=== PATIENT | female | born 1995 | race Caucasian/White ===

== ENCOUNTER 2020-01-04 13:28 | Outpatient (CLI) | payer OTHER ==
[2020-01-04 14:21] LABS: ABSOLUTE EOSINOPHILS # (AUTO) 0.1 10^3/uL (0.0-0.6); ABSOLUTE LYMPHOCYTES (AUTO) 1.8 10^3/uL (0.5-4.7); ABSOLUTE MONOCYTES (AUTO) 0.4 10^3/uL (0.1-1.4); ABSOLUTE NEUT (AUTO) 5.6 10^3/uL (1.7-8.2); BASOPHILS % (AUTO) 0.4 % (0-2); EOSINOPHILS % (AUTO) 1.6 % (0-6); HEMATOCRIT 31.8 % (36.0-47.0); LYMPHOCYTES % (AUTO) 23.2 % (13-45); MEAN CORPUSCULAR HEMOGLOBIN 29.5 pg (27.0-33.4); MEAN CORPUSCULAR HGB CONC 34.8 g/dL (32.0-36.0); MEAN CORPUSCULAR VOLUME 85 fl (80-97); MONOCYTES % (AUTO) 4.6 % (3-13); PLATELET COUNT 181 10^3/uL (150-450); RED BLOOD COUNT 3.75 10^6/uL (3.72-5.28); RED CELL DISTRIBUTION WIDTH 12.6 % (11.5-14.0); SEGMENTED NEUTROPHILS % (AUTO) 70.2 % (42-78); TOTAL CELLS COUNTED % (AUTO) 100 %; WHITE BLOOD COUNT 7.9 10^3/uL (4.0-10.5)
[2020-01-04 14:34] LABS: AMORPHOUS SEDIMENT,URINE TRACE /HPF; APPEARANCE,URINE SLIGHTLY-CLOUDY; BILIRUBIN,URINE NEGATIVE (NEGATIVE); COLOR,URINE YELLOW; GLUCOSE, URINE NEGATIVE (NEGATIVE); KETONES,URINE NEGATIVE (NEGATIVE); LEUKOCYTE ESTERASE,URINE MODERATE (NEGATIVE); NITRITE,URINE NEGATIVE (NEGATIVE); PROTEIN,URINE NEGATIVE (NEGATIVE); URINE SPECIFIC GRAVITY 1.013; UROBILINOGEN,URINE NEGATIVE mg/dL (<2.0)
--- NOTE | 2020-01-04 14:38 | Non Stress Test Report ---
Non Stress Test Datetime Report Generated by CPN: 01/04/2020 14:38 DEMOGRAPHIC Test Number: 1 EGA NST: 34.6 INDICATION Indication for Study (NST) Other: provider orders VITAL SIGNS Temperature - NST: 97.4 Pulse - NST: 73 RESP - NST: 18 NBPSYS NST: 153 NBPDIA NST: 77 MONITORING Monitor Explained: Monitor Explained; Test Explained; Patient Verbalized Understanding Time on Monitor: 01/04/2020 13:54 Time off Monitor: 01/04/2020 14:20 NST Duration: 26 NST INTERVENTIONS NST Interventions: PO Hydration; Reposition Patient Physician Notified NST: Gaudencio Webber, CNM BABY A: [id number] BABY A Movement : Present Contraction Frequency : none FHR Baseline : 130 Accelerations : 15X15 Decelerations : None Variability : Moderate 6-25bpm NST Review: Meets Criteria for Reactive NST NST Review and Verified By : Elvi Goyal RN NST Results: Reactive NST REPORT Report Trigger: Send Report
[2020-01-04 14:40] LABS: ALBUMIN 3.5 g/dL (3.5-5.0); ALKALINE PHOSPHATASE 136 U/L (38-126); ASPARTATE AMINO TRANSFERASE 20 U/L (14-36); BILIRUBIN,TOTAL 0.3 mg/dL (0.2-1.3); BLOOD UREA NITROGEN 6 mg/dL (7-20); CALCIUM 8.9 mg/dL (8.4-10.2); CARBON DIOXIDE 22 mmol/L (22-30); CHLORIDE 108 mmol/L (98-107); GLUCOSE 74 mg/dL (75-110); POTASSIUM 4.2 mmol/L (3.6-5.0); TOTAL PROTEIN 6.6 g/dL (6.3-8.2); URIC ACID 3.6 mg/dL (2.5-6.2)
[2020-01-04 14:41] LABS: ANION GAP 3 (5-19)
[2020-01-04 14:55] LABS: URINE AMPHETAMINES SCREEN NEGATIVE; URINE BARBITURATES SCREEN NEGATIVE; URINE BENZODIAZEPINES SCREEN NEGATIVE; URINE COCAINE SCREEN NEGATIVE; URINE MARIJUANA (THC) SCREEN NEGATIVE; URINE METHADONE SCREEN NEGATIVE; URINE PHENCYCLIDINE SCREEN NEGATIVE
[2020-01-04 15:00] LABS: UR PRO/CREAT RATIO RESULT 0.1 mg/mg (0.0-0.2); URINE CREATININE 94.7 mg/dL (16-327)
== END 2020-01-04 15:18 | disposition home or self-care (01) ==
LOC: LC 13:28
PROVIDERS: ATTEND Obstetrics & Gynecology Gynecology
DX: O47.03 False labor before 37 completed weeks of gestation, third trimester (principal); Z3A.34 34 weeks gestation of pregnancy; Z91.040 Latex allergy status
CPT/HCPCS: 36415; 59025; 80053; 80307; 81001; 82570; 83615; 84112; 84156; 84550; 85025

== ENCOUNTER 2020-01-12 00:29 | Outpatient (CLI) | payer OTHER ==
[2020-01-12 01:14] LABS: APPEARANCE,URINE SLIGHTLY-CLOUDY; BILIRUBIN,URINE NEGATIVE (NEGATIVE); COLOR,URINE YELLOW; GLUCOSE, URINE 50 mg/dL (NEGATIVE); KETONES,URINE NEGATIVE (NEGATIVE); LEUKOCYTE ESTERASE,URINE TRACE (NEGATIVE); NITRITE,URINE NEGATIVE (NEGATIVE); PROTEIN,URINE NEGATIVE (NEGATIVE); URINE SPECIFIC GRAVITY 1.014; UROBILINOGEN,URINE NEGATIVE mg/dL (<2.0)
[2020-01-12] MEDS ORDERED: HYDROXYZINE PAMOATE 50 MG CAPSULE PO ONE (01:22)
[2020-01-12] MEDS ORDERED: RINGERS SOLUTION,LACTATED 1,000 ML IV ONE (01:23)
[2020-01-12] MEDS ORDERED: HYDROXYZINE PAMOATE 50 MG CAPSULE ONE (01:27)
[2020-01-12 02:36] LABS: URINE AMPHETAMINES SCREEN NEGATIVE; URINE BARBITURATES SCREEN NEGATIVE; URINE BENZODIAZEPINES SCREEN NEGATIVE; URINE COCAINE SCREEN NEGATIVE; URINE MARIJUANA (THC) SCREEN NEGATIVE; URINE METHADONE SCREEN NEGATIVE; URINE PHENCYCLIDINE SCREEN NEGATIVE
[2020-01-12] MEDS ORDERED: ACETAMINOPHEN 325 MG TABLET PO ONE (03:12)
[2020-01-12] MEDS ORDERED: ACETAMINOPHEN 325 MG TABLET ONE (03:17)
--- NOTE | 2020-01-12 03:37 | Non Stress Test Report ---
Non Stress Test Datetime Report Generated by CPN: 01/12/2020 03:37 DEMOGRAPHIC EGA NST: 36.0 INDICATION Indication for Study (NST) Other: LC- back pain MONITORING Monitor Explained: Monitor Explained; Test Explained; Patient Verbalized Understanding Time on Monitor: 01/12/2020 00:43 Time off Monitor: 01/12/2020 03:30 NST Duration: 167 NST INTERVENTIONS NST Interventions: IV Fluids; Reposition Patient Physician Notified NST: Dr. John BABY A: [id number] BABY A Movement : Present Contraction Frequency : none FHR Baseline : 135 Accelerations : 15X15 Decelerations : None Variability : Moderate 6-25bpm NST Review: Meets Criteria for Reactive NST NST Review and Verified By : D Bellavance RN NST Results: Reactive NST REPORT Report Trigger: Send Report
== END 2020-01-12 03:40 | disposition home or self-care (01) ==
LOC: LC 00:29
PROVIDERS: ATTEND Obstetrics & Gynecology
DX: O26.893 Other specified pregnancy related conditions, third trimester (principal); R10.9 Unspecified abdominal pain; M54.9 Dorsalgia, unspecified; Z3A.35 35 weeks gestation of pregnancy
CPT/HCPCS: 59025; 80307; 81001

== ENCOUNTER 2020-01-26 22:58 | Outpatient (CLI) | payer OTHER ==
[2020-01-26 23:51] LABS: APPEARANCE,URINE SLIGHTLY-CLOUDY; BILIRUBIN,URINE NEGATIVE (NEGATIVE); COLOR,URINE STRAW; GLUCOSE, URINE NEGATIVE (NEGATIVE); KETONES,URINE NEGATIVE (NEGATIVE); LEUKOCYTE ESTERASE,URINE TRACE (NEGATIVE); NITRITE,URINE NEGATIVE (NEGATIVE); PROTEIN,URINE NEGATIVE (NEGATIVE); URINE SPECIFIC GRAVITY 1.004; UROBILINOGEN,URINE NEGATIVE mg/dL (<2.0)
[2020-01-27 00:06] LABS: URINE AMPHETAMINES SCREEN NEGATIVE; URINE BARBITURATES SCREEN NEGATIVE; URINE BENZODIAZEPINES SCREEN NEGATIVE; URINE COCAINE SCREEN NEGATIVE; URINE MARIJUANA (THC) SCREEN NEGATIVE; URINE METHADONE SCREEN NEGATIVE; URINE PHENCYCLIDINE SCREEN NEGATIVE
[2020-01-27] MEDS ORDERED: HYDROXYZINE PAMOATE 50 MG CAPSULE PO ONE (01:00)
[2020-01-27] MEDS ORDERED: HYDROXYZINE PAMOATE 50 MG CAPSULE ONE (01:01)
--- NOTE | 2020-01-27 01:47 | Non Stress Test Report ---
Non Stress Test Datetime Report Generated by CPN: 01/27/2020 01:47 DEMOGRAPHIC EGA NST: 38.0 INDICATION Indication for Study (NST) Other: Gestational age greater than 32 weeks VITAL SIGNS Temperature - NST: 98.7 Pulse - NST: 70 RESP - NST: 18 NBPSYS NST: 125 NBPDIA NST: 64 MONITORING Monitor Explained: Monitor Explained; Test Explained; Patient Verbalized Understanding Time on Monitor: 01/26/2020 23:15 Time off Monitor: 01/27/2020 01:03 NST INTERVENTIONS NST Interventions: PO Hydration; Reposition Patient Physician Notified NST: Dr. Moctezuma BABY A: [id number] BABY A Movement : Present Contraction Frequency : 3-6 FHR Baseline : 125 Accelerations : 15X15 Variability : Moderate 6-25bpm NST Review: Meets Criteria for Reactive NST NST Review and Verified By : Nigel Esquivel RN NST Results: Reactive NST REPORT Report Trigger: Send Report
== END 2020-01-27 01:10 | disposition home or self-care (01) ==
LOC: LC 22:58
PROVIDERS: ATTEND Obstetrics & Gynecology
DX: O47.1 False labor at or after 37 completed weeks of gestation (principal); Z3A.38 38 weeks gestation of pregnancy; Z91.040 Latex allergy status
CPT/HCPCS: 59025; 80307; 81005; 84112

== ENCOUNTER 2020-02-15 05:03 | Inpatient (IN) | payer OTHER ==
[2020-02-15 05:36] LABS: APPEARANCE,URINE SLIGHTLY-CLOUDY; BILIRUBIN,URINE NEGATIVE (NEGATIVE); COLOR,URINE YELLOW; GLUCOSE, URINE NEGATIVE (NEGATIVE); KETONES,URINE NEGATIVE (NEGATIVE); LEUKOCYTE ESTERASE,URINE SMALL (NEGATIVE); NITRITE,URINE NEGATIVE (NEGATIVE); PROTEIN,URINE NEGATIVE (NEGATIVE); URINE SPECIFIC GRAVITY 1.012; UROBILINOGEN,URINE NEGATIVE mg/dL (<2.0)
[2020-02-15 05:56] LABS: URINE AMPHETAMINES SCREEN NEGATIVE; URINE BARBITURATES SCREEN NEGATIVE; URINE BENZODIAZEPINES SCREEN NEGATIVE; URINE COCAINE SCREEN NEGATIVE; URINE MARIJUANA (THC) SCREEN NEGATIVE; URINE METHADONE SCREEN NEGATIVE; URINE PHENCYCLIDINE SCREEN NEGATIVE
--- NOTE | 2020-02-15 06:12 | Admission Physical ---
Datetime Report Generated by CPN: 02/15/2020 06:12 CURRENT ADMISSION Chief Complaint: Uterine Contractions; Suspected Ruptured Membranes Chief Complaint Other: Woke with contractions around 2 am and then her water broke about 2.5 hours later. No bleeding. Clear fluid. Good FM. Feeling irregular contractions Indication for Induction: PROM Admit Impression : Term, Intrauterine Admit Plan: Admit to Unit; Initiate Labor Induction Protocol ALLERGIES Medication Allergies: No Medication Allergies: latex (02/15/2020) Latex: Latex Allergies Food Allergies: none Environmental Allergies: none OBSTETRICAL HISTORY EDC: 02/09/2020 00:00 : 1 Para: 0 Term: 0 : 0 SAB: 0 IAB: 0 Livin Gestational Diabetes: No Rh Sensitization: No Incompetent Cervix: No DAVI: No Infertility: No ART Treatment: No Uterine Anomaly: No IUGR: No Hx Previous C/S: No Macrosomia: No Hx Loss/Stillborn: No PIH: No Hx : No Placenta Previa/Abruption: No Depression/PP Depression: No PTL/PROM: No Post Hemorrhage: No Current Procedures: Ultrasound Obstetrical History Comments: G1- current SEE RECORDS Alcohol: No Marijuana : No Cocaine: No Other Illicit Drugs: No Cigarettes: Never Smoker. [id number] MEDICAL HISTORY Diabetes: No Blood Transfusion: No Pulmonary Disease (Asthma, TB): No Breast Disease: No Hypertension: No Discovery Guide Surgery: No Heart Disease: No Hosp/Surgery: Yes Autoimmune Disorder: No Anesthetic Complications: No Kidney Disease: No Abnormal Pap Smear: No Neuro/Epilepsy: No Psychiatric Disorders: No Other Medical Diseases: No Hepatitis/Liver Disease: No Significant Family History: No Varicosities/Phlebitis: No Trauma/Violence : No Thyroid Dysfunction: No Medical History Comments: tonsillectomy in 2013 INFECTIOUS HISTORY Gonorrhea: No Genital Herpes: No Chlamydia: No Tuberculosis: No Syphilis: No Hepatitis: No HIV/AIDS Exposure: No Rash or Viral Illness: No HPV: No PHYSICAL EXAM General: Normal HEENT: Normal Neurologic: Normal Thyroid: Normal Heart: Normal Lungs: Normal Breast: Normal Back: Normal Abdomen: Normal Genitourinary Exam: Normal Extremities: Normal DTRs: Normal Pelvic Type: Adequate Vital Signs: Reviewed VAGINAL EXAM Dilatation: 2 Effacement: 50 Station: -3 Contraction Comments: irregular MEMBRANES Membranes: Ruptured Amniotic Fluid Color: Clear FETUS A EGA: 40.6 Monitoring: External US FHR- Baseline: 125 Variability: Moderate 6-25bpm Accelerations: 15X15 Decelerations: None FHR Category: Category I Presentation: Vertex Admit Comment: G1 at 40.6 wks EGA in active labor. Ctx this am and then SROM clear at 0430 -admit to LDR -CEFM and toco -NPO and IVFs -GBS negative -Begin Pitocin low dose protocol -Anticipate PLANS FOR LABOR AND DELIVERY Labor and Delivery: None Pain Management: Medications; Epidural Feeding Preference: Formula Benefit of Breast Feed Discussed: Yes INFORMED CONSENT Informed Consent Obtained: Vaginal Delivery; Section Delivery; Induction of Labor; Vacuum/Forceps Assist; Risks, Benefits and Alternatives Discussed Signature: with User ID: [email or web address] : with User ID: [email or web address]
[2020-02-15] MEDS ORDERED: RINGERS SOLUTION,LACTATED 1,000 ML IV PRN (07:22)
[2020-02-15] MEDS ORDERED: RINGERS SOLUTION,LACTATED 1,000 ML IV ONE (07:22)
[2020-02-15] MEDS ORDERED: OXYTOCIN 10 UNIT/ML VIAL ONE (07:33)
[2020-02-15] MEDS ORDERED: MISOPROSTOL 0.2 MG TABLET ONE (07:34)
[2020-02-15] MEDS ORDERED: LIDOCAINE 1% INJ-PF (10 MG/ML) 30 ML SDV ONE (07:34)
[2020-02-15] MEDS ORDERED: OXYTOCIN/0.9 % SODIUM CHLORIDE 30 UNIT/500 ML RTUINJ ONE (07:34)
[2020-02-15] MEDS ORDERED: OXYTOCIN/0.9 % SODIUM CHLORIDE 30 UNIT/500 ML RTUINJ IV PRN ×2 (07:40→16:33)
[2020-02-15] MEDS ORDERED: PROMETHAZINE HCL INJ 25 MG/1 ML VIAL IV ONE (07:41)
[2020-02-15] MEDS ORDERED: NALBUPHINE HCL INJ 10 MG/1 ML AMPULE INJ ONE (07:41)
[2020-02-15] MEDS ORDERED: PROMETHAZINE HCL INJ 25 MG/1 ML VIAL ONE (07:51)
[2020-02-15] MEDS ORDERED: NALBUPHINE HCL INJ 10 MG/1 ML AMPULE ONE (07:51)
[2020-02-15 07:52] LABS: ABSOLUTE EOSINOPHILS # (AUTO) 0.1 10^3/uL (0.0-0.6); ABSOLUTE LYMPHOCYTES (AUTO) 3.8 10^3/uL (0.5-4.7); ABSOLUTE MONOCYTES (AUTO) 0.6 10^3/uL (0.1-1.4); ABSOLUTE NEUT (AUTO) 8.4 10^3/uL (1.7-8.2); BASOPHILS % (AUTO) 0.3 % (0-2); HEMATOCRIT 36.5 % (36.0-47.0); HEMOGLOBIN 12.4 g/dL (12.0-15.5); LYMPHOCYTES % (AUTO) 29.5 % (13-45); MEAN CORPUSCULAR HEMOGLOBIN 28.1 pg (27.0-33.4); MEAN CORPUSCULAR HGB CONC 33.9 g/dL (32.0-36.0); MEAN CORPUSCULAR VOLUME 83 fl (80-97); MONOCYTES % (AUTO) 4.4 % (3-13); PLATELET COUNT 228 10^3/uL (150-450); RED CELL DISTRIBUTION WIDTH 13.2 % (11.5-14.0); SEGMENTED NEUTROPHILS % (AUTO) 64.8 % (42-78); TOTAL CELLS COUNTED % (AUTO) 100 %; WHITE BLOOD COUNT 12.9 10^3/uL (4.0-10.5)
[2020-02-15] MEDS ORDERED: EPHEDRINE SULFATE INJ 50 MG/1 ML AMPULE ONE (10:20)
[2020-02-15] MEDS ORDERED: FENTANYL/BUPIVACAINE/NS/PF 300 MCG/150 ML RTUINJ EPI ONE (10:20)
[2020-02-15] MEDS ORDERED: ROPIVACAINE HCL 0.2% INJ/PF (2 MG/ML) 20 ML SDV ONE (10:21)
[2020-02-15] MEDS ORDERED: FENTANYL CITRATE INJ/PF 100 MCG/2 ML AMPUL ONE (10:53)
[2020-02-15] MEDS ORDERED: ACETAMINOPHEN WITH CODEINE #3 TABLET PO PRN ×2 (16:33)
[2020-02-15] MEDS ORDERED: PROMETHAZINE HCL 25 MG SUPP.RECT PR PRN (16:33)
[2020-02-15] MEDS ORDERED: GLYCERIN/WITCH HAZEL LEAF 1 EACH MED..WIPE TP PRN (16:33)
[2020-02-15] MEDS ORDERED: PROMETHAZINE HCL INJ 25 MG/1 ML VIAL IV PRN (16:33)
[2020-02-15] MEDS ORDERED: ZOLPIDEM TARTRATE 5 MG TABLET PO PRN (16:33)
[2020-02-15] MEDS ORDERED: BENZOCAINE/MENTHOL AEROSOL SPRAY 56 ML TOP PRN (16:33)
[2020-02-15] MEDS ORDERED: DIPHENHYDRAMINE HCL 25 MG CAPSULE PO PRN (16:33)
[2020-02-15] MEDS ORDERED: DIPH/PERTUSS(ACELL)/TETANUS VAC/PF 0.5 ML SYR (>=10YO) IM PRN (16:33)
[2020-02-15] MEDS ORDERED: MEASLES,MUMPS&RUBELLA VACC/PF 0.5 ML VIAL SUBCUT PRN (16:33)
[2020-02-15] MEDS ORDERED: DIBUCAINE 1% OINTMENT 28 GM TP PRN (16:33)
[2020-02-15] MEDS ORDERED: PROMETHAZINE HCL 25 MG TABLET PO PRN (16:33)
[2020-02-15] MEDS ORDERED: PSEUDOEPHEDRINE HCL 30 MG TABLET PO PRN (16:33)
[2020-02-15] MEDS ORDERED: NA PHOS,M-B/NA PHOS,DI-BA (ADULT) 133 ML ENEMA PR PRN (16:33)
[2020-02-15] MEDS ORDERED: ACETAMINOPHEN 650 MG SUPP.RECT PR PRN (16:33)
[2020-02-15] MEDS ORDERED: MAGNESIUM HYDROXIDE SUSP 30 ML UDCUP PO PRN (16:33)
[2020-02-15] MEDS ORDERED: MISOPROSTOL 0.2 MG TABLET PR ONE (17:22)
[2020-02-15] MEDS ORDERED: METHYLERGONOVINE MALEATE INJ/PF 0.2 MG/1 ML AMPULE ONE (17:47)
[2020-02-15 18:11] LABS: ABSOLUTE LYMPHOCYTES (AUTO) 1.4 10^3/uL (0.5-4.7); ABSOLUTE MONOCYTES (AUTO) 0.5 10^3/uL (0.1-1.4); ABSOLUTE NEUT (AUTO) 14.9 10^3/uL (1.7-8.2); BASOPHILS % (AUTO) 0.2 % (0-2); EOSINOPHILS % (AUTO) 0.2 % (0-6); HEMATOCRIT 32.3 % (36.0-47.0); LYMPHOCYTES % (AUTO) 8.5 % (13-45); MEAN CORPUSCULAR HEMOGLOBIN 28.3 pg (27.0-33.4); MEAN CORPUSCULAR HGB CONC 34.1 g/dL (32.0-36.0); MEAN CORPUSCULAR VOLUME 83 fl (80-97); MONOCYTES % (AUTO) 3.1 % (3-13); PLATELET COUNT 221 10^3/uL (150-450); RED CELL DISTRIBUTION WIDTH 13.5 % (11.5-14.0); TOTAL CELLS COUNTED % (AUTO) 100 %
[2020-02-15] MEDS ORDERED: AMPICILLIN SOD/SULBACTAM 1.5 GM VIAL IV ONE (18:26)
[2020-02-15] MEDS ORDERED: METHYLERGONOVINE MALEATE 0.2 MG TABLET ONE (18:30)
[2020-02-15] MEDS ORDERED: AMPICILLIN SOD/SULBACTAM 3 GM VIAL ONE (18:30)
[2020-02-15] MEDS ORDERED: AMPICILLIN SOD/SULBACTAM 3 GM VIAL IV SCH (18:30)
[2020-02-15] MEDS ORDERED: ACETAMINOPHEN 650 MG SUPP.RECT PR ONE (18:55)
--- NOTE | 2020-02-15 18:58 | Warning Signs in Babies ---
VOD Warning Signs Datetime Report Generated by [facility]: 02/15/2020 18:58 VOD#608 -Warning Signs in Babies: Needs to be viewed. (01/04/2020 13:36:Viri Reyna RN)
--- NOTE | 2020-02-15 19:12 | Birth Certificate Data ---
Cert Data Datetime Report Generated by CPN: 02/15/2020 19:11 CERTIFICATE DATA 47a. Care: Yes (01/04/2020 13:36:Ijeoma Montgomery RN) 48a. Number of Prev Live Births: 0 (01/04/2020 13:36:Rowan Amin RN) 48b. Now Livin (01/04/2020 13:36:Suzie Hernandez RN) 48c. Live Births Now : 0 (01/04/2020 13:36: system process) 48e. Losses: 0 (01/04/2020 13:36:Rowan Amin RN) RISK FACTORS IN THIS 49a. Diabetes: No (01/04/2020 13:36:Olinda Wang RN) 49b. Hypertension: No (01/04/2020 13:36:Olinda Wang RN) 49c. Previous Births: 0 (01/04/2020 13:36:Suzie Hernandez RN) 49d. Stillborns: No (01/04/2020 13:36:Olinda Wang RN) 49d. IUGR: No (01/04/2020 13:36:Olinda Wang RN) 49e. Infertility Treatment: No (01/04/2020 13:36:Olinda Wang RN) 49f. Previous Cesareans: 0 (01/04/2020 13:36:Rowan Amin RN) Mother's Height 50b. Height Inches: 69 (02/15/2020 06:58:QS system process) Mother's Weight 51a. Pre- Weight (lbs): 197 (01/04/2020 13:36:Idris Still RN) 51b. Weight at Delivery (lbs): 233 (02/15/2020 06:58:QS system process) 52. Dt Last Normal Menses Began: 05/05/2019 00:00 (01/04/2020 13:36:Olinda Wang RN) Infections Present/Treated 53a. Gonorrhea: No (01/04/2020 13:36:Olinda Wang RN) Results this Hospital Visit : Negative (01/04/2020 13:36:Idris Still RN) 53b. Syphilis: No (01/04/2020 13:36:Olinda Wang RN) 53c. Chlamydia: No (01/04/2020 13:36:Olinda Wang RN) Results this Hospital Visit: Negative (01/04/2020 13:36:Idris Still RN) 53d. Hepatitis B: No (01/04/2020 13:36:Olinda Wang RN) Results this Hospital Visit: Negative (01/04/2020 13:36:Idris Still RN) 53e. Hepatitis C: Negative (01/04/2020 13:36:Idris Still RN) 53h. Mother Tested for HBsAG: Yes (01/04/2020 13:36:Idris Still RN) 53i. Date Tested: 07/27/2019 00:00 (01/04/2020 13:36:Idris Still RN) 53j. Test Result: Negative (01/04/2020 13:36:Idris Still, RN) Obstetric Procedures 54a, b, c. Obstetric Procedures: Ultrasound (01/04/2020 13:36:Olinda Wang, RN) Cigarette Smoking Cigarette Smoking: Never Smoker. [id number] (01/04/2020 13:36:Olindajazmine Wang, RN) Onset of Labor 56a. PROM >12 Hrs: 11.45 (02/15/2020 06:29:QS system process) 56b. Precipitous Labor <3 Hrs: 4 (01/04/2020 13:36:QS system process) 56c. Prolonged Labor > 20 Hrs: 4 (01/04/2020 13:36:QS system process) 57a. Induction of Labor: Induction (01/04/2020 13:36:ODALIS Bansal) 57a. Induction of Labor: Cytotec @ 1000 MN (02/15/2020 17:24:Frances Whaley RN) 57c. Non-Vertex Presentation A: Vertex (01/04/2020 13:36:ODALIS Bansal) 57d. Steroids - Lung Mat: None (01/04/2020 13:36:ODALIS Bansal) 57d. Steroids - Lung Mat: Not Applicable (01/04/2020 13:36:ODALIS Bansal) 57g. Moderate/Heavy Meconium: Clear (02/15/2020 06:29:Rowan Amin RN) 57h. Intolerance of Labor: N/A (01/04/2020 13:36:ODALIS Bansal) : Repeat Elective (01/04/2020 13:36:ODALIS Bansal) 57i. Epidural/Spinal Anesthesia: Epidural (01/04/2020 13:36:ODALIS Bansal) Method of Delivery 58a. Forceps - Unsuccessful A: N/A (01/04/2020 13:36:[facility]) 58b. Vacuum - Unsuccessful A: N/A (01/04/2020 13:36:[facility]) 58c. Presentation at 58c. Presentation at - A : Vertex (01/04/2020 13:36:[facility]) 58c. Presentation at - A : N/A (01/04/2020 13:36:[facility]) 58c. Presentation at - A : Cephalic (02/15/2020 11:33:Frances Whaley ) Final Route and Method of Del 58d. Baby A Route/Delivery: Vaginal (01/04/2020 13:36:[facility]) 58e. Trial of Labor Attempted: No (01/04/2020 13:36:Dahlia Camp, RNC) 58e. Trial of Labor Attempted A: N/A (01/04/2020 13:36:Dahlia Camp, RNC) 58e. Trial of Labor Attempted B: N/A (01/04/2020 13:36:Dahlia Camp, RNC) Maternal Morbidity 59b. 3rd or 4th Degree Lacs: Perineal (01/04/2020 13:36:Dahlia Camp, RNC) 59b. 3rd or 4th Degree Lacs: Second Degree (01/04/2020 13:36:Dahlia Camp, RNC) Birthweight Baby A: 3731 (01/04/2020 13:36:Viri Reyna RN) 60a. Pounds : 8 (01/04/2020 13:36:QS system process) 60b. Ounces: 4 (01/04/2020 13:36:QS system process) 61. GA at Delivery Baby A: 40.6 (01/04/2020 13:36:Dahlia Camp, RNC) : Full Term- 39- 40.6 Weeks (01/04/2020 13:36:QS system process) 62a. 5 Minute Baby A: 9 (01/04/2020 13:36:QS system process)
--- NOTE | 2020-02-15 19:12 | Delivery Summary ---
Del Sum A-C Datetime Report Generated by CPN: 02/15/2020 19:11 DELIVERY PERSONNEL DELIVERY PERSONNEL: [id number] Delivery Doctor:: Nadine Michaels CNM Nurse Esl Tutor Certified:: Nadine Michaels CNM Labor and Delivery Nurse:: Frances Whaley RNorthotist/prosthetist Nurse:: ODALIS Bansal Nursery Nurse:: RENAE Root/BUILDER OPERATOR: Marija Baum, STAPLE PROCESSING MACHINE OPERATOR MATERNAL INFORMATION Delivery Anesthesia: Epidural Medications After Delivery: Pitocin 30 Units in 500ml NS/D5W; Methergine 0.2mg IM; Cytotec 1000mcg Per Rectum/Vagina Delivery QBL: 100 Maternal Complications: None Provider Comments: SVDVF over 2nd deg roni lac with nuchal cord. Somersaulted baby through, OA to ANGELES. Shoulders delivered easily. Infant vigorous, to mothers abd. Cord clamped x2 cut per FOB after 2 min. 3VC noted. Placenta spont and intact with trailing membranes. FF@U-2. Bleeding stabilized. Perineal repair as above. LABOR SUMMARY EDC: 02/09/2020 00:00 No. Babies in Womb: 1 Attempted: No Labor Anesthesia: Epidural LABOR INFORMATION Reason for Induction: Not Applicable Onset of Labor: 02/15/2020 11:30 Complete Dilatation: 02/15/2020 15:35 Cervical Ripening Agents: Cytotec @ 1000 TN Oxytocin: Induction Group B Beta Strep: Negative Antibiotics # of Doses: 0 Steroids Given: None Reason Steroids Not Administered: Not Applicable MEMBRANES Membranes Rupture Method: Spontaneous Rupture of Membranes: 02/15/2020 04:30 Length of Rupture (hr): 11.45 Amniotic Fluid Color: Clear Amniotic Fluid Amount: Small Amniotic Fluid Odor: Normal STAGES OF LABOR Stage 1 hr: 4 Stage 1 min: 5 Stage 2 hr: 0 Stage 2 min: 22 Stage 3 hr: 0 Stage 3 min: 6 Total Time in Labor hr: 4 Total Time in Labor min: 33 VAGINAL DELIVERY Episiotomy: None Laceration #1: Perineal Laceration Extension #1: Second Degree Laceration Repair: Yes Laceration Repair Note: 2.0 chromic suture used for repair in usual fashion Sponge Count Correct: N/A Sharps Count Correct: N/A CSECTION DELIVERY Primary Indication: N/A Secondary Indication: Repeat Elective CSection Incidence: N/A Labor: N/A Elective: N/A CSection Incision: N/A BABY A INFORMATION Delivery Date/Time: 02/15/2020 15:57 Method of Delivery: Vaginal Nurse Controlled Delivery: No Born in Route : No : N/A Forceps: N/A Vacuum Extraction: N/A Shoulder Dystocia : No PRESENTATION/POSITION BABY A Presentation: Cephalic Cephalic Presentation: Vertex Vertex Position: Right Occipital Anterior Breech Presentation: N/A PLACENTA INFORMATION BABY A Placenta Delivery Time : 02/15/2020 16:03 Placenta Method of Delivery: Spontaneous Placenta Status: Delivered SCORES BABY A Heart Rate 1 min: >100 bpm Resp Effort 1 min: Good Cry Reflex Irritability 1 min: Cough or Sneeze or Pulls Away Muscle Tone 1 min: Active Motion Color 1 min: Blue/Pale Resuscitation Effort 1 min: Tactile Stimulation SCORE 1 MIN: 8 Heart Rate 5 min: >100 bpm Resp Effort 5 min: Good Cry Reflex Irritability 5 min: Cough or Sneeze or Pulls Away Muscle Tone 5 min: Active Motion Color 5 min: Body [place], Extremities Blue Resuscitation Effort 5 min: N/A SCORE 5 MIN: 9 Resuscitation Effort 10 min: N/A INFORMATION BABY A Gestational Age at Delivery: 40.6 Gestational Status: Full Term- 39- 40.6 Weeks Outcome : Liveborn Infant Condition : Stable Infant Sex: Female IDENTIFICATION BABY A Infant Verification Date/Time: 02/15/2020 16:19 ID Band Number: [id number] Mother's Name Verified: Yes RN Verifying : Delilah Whaley, RENAE Additional Verifying Personnel: Delilah Hidalgo RN WEIGHT/LENGTH BABY A Birthweight (gm): 3731 Weight (lb): 8 Infant Weight (oz): 4 Infant Length (in): 20.50 Infant Length (cm): 52.07 CORD INFORMATION BABY A No. Cord Vessels: 3 Nuchal Cord : Around Neck x1, Loose Cord Blood Taken: Yes-For Storage (Mom's Blood type +) Infant Suction: None ASSESSMENT BABY A Infant Complications: None Physical Findings at Delivery: Within Normal Limits Respirations: Appears Normal Skin to Skin: Yes Skin to Skin Time (min): 60 Box Tender/ALS Called : No Infant Care By: C Danielle RN Transferred To: Remains with Mother BABY B INFORMATION : N/A SIGNATURES Assignment: Tra Arteaga MD Signature: with User ID: [email or web address] : with User ID: [email or web address] : I was personally available for consultation and serving as supervising physician for the MLP.
[2020-02-15] MEDS: METHYLERGONOVINE MALEATE 0.2 MG TABLET PO SCH (22:02)
[2020-02-15] MEDS ORDERED: FAMOTIDINE 20 MG TABLET ONE (22:14)
[2020-02-15] MEDS: DOCUSATE SODIUM 100 MG CAPSULE PO SCH (22:24)
[2020-02-15] MEDS: FAMOTIDINE 20 MG TABLET PO SCH (22:25)
[2020-02-15] MEDS: IBUPROFEN 800 MG TABLET PO SCH (22:25)
[2020-02-15] MEDS: FERROUS SULFATE 325 MG TABLET PO SCH (22:25)
[2020-02-16] MEDS ORDERED: METHYLERGONOVINE MALEATE 0.2 MG TABLET ONE ×5 (00:03→19:08)
[2020-02-16] MEDS: METHYLERGONOVINE MALEATE 0.2 MG TABLET PO SCH ×4 (00:05→19:13)
[2020-02-16] MEDS: AMPICILLIN SODIUM/SULBACTAM NA 3 GM in NORMAL SALINE 100 ML IV SCH ×2 (02:00→09:46)
[2020-02-16] MEDS: IBUPROFEN 800 MG TABLET PO SCH ×3 (06:10→21:38)
[2020-02-16 07:51] LABS: HEMATOCRIT 25.6 % (36.0-47.0); MEAN CORPUSCULAR HEMOGLOBIN 29.1 pg (27.0-33.4); MEAN CORPUSCULAR HGB CONC 34.9 g/dL (32.0-36.0); MEAN CORPUSCULAR VOLUME 83 fl (80-97); PLATELET COUNT 160 10^3/uL (150-450); RED BLOOD COUNT 3.08 10^6/uL (3.72-5.28); RED CELL DISTRIBUTION WIDTH 13.2 % (11.5-14.0); WHITE BLOOD COUNT 10.2 10^3/uL (4.0-10.5)
[2020-02-16 08:00] LABS: HEMOGLOBIN 8.9 g/dL (12.0-15.5)
[2020-02-16] MEDS: FERROUS SULFATE 325 MG TABLET PO SCH ×2 (09:46→19:13)
[2020-02-16] MEDS: PRENATAL VITAMIN W DHA CAPSULE PO SCH (09:46)
[2020-02-16] MEDS: DOCUSATE SODIUM 100 MG CAPSULE PO SCH ×2 (09:46→19:13)
[2020-02-16] MEDS: SENNOSIDES/DOCUSATE 8.6-50 MG 1 EACH TABLET PO SCH (09:46)
[2020-02-16] MEDS ORDERED: FAMOTIDINE 20 MG TABLET ONE ×2 (09:55→21:30)
[2020-02-16] MEDS: FAMOTIDINE 20 MG TABLET PO SCH ×2 (09:59→21:57)
--- NOTE | 2020-02-16 12:18 | PDOC PROGRESS REPORT ---
Subjective-OB Progress Note for:: 02/16/20 Subjective: reports bleeding slowing, pain controlled with current meds. denies needs Physical Exam (OB) Vital Signs: Temp Pulse Resp BP Pulse Ox 98.0 F 99 16 121/83 99 02/16/20 07:54 02/16/20 07:54 02/16/20 07:54 02/16/20 07:54 02/16/20 07:54 Intake & Output 02/15/20 02/16/20 02/17/20 06:59 06:59 06:59 Intake Total 1340 Output Total 400 Balance -400 1340 Weight 105.6 kg - Maternal Morbidity 59. Maternal Morbidity (serious complications experinced by the mother associated with labor and delivery: None of the above - Abdomen Description: Soft, Round Hernia Present: No Fundal Description: Firm, Midline Fundal Height: u/u - u/2 - Abdominal Distension: No distension Tenderness: Nontender - Extremities Lower extremities: Lianna's sign - neg Calf: Normal Ankle: Normal Objective-Diagnostic Laboratory: 02/16/20 07:08 02/15/20 02/16/20 02/16/20 18:02 07:08 07:08 WBC 17.0 H 10.2 RBC 3.90 3.08 L Hgb 11.0 L 8.9 L D Hct 32.3 L 25.6 L MCV 83 83 MCH 28.3 29.1 MCHC 34.1 34.9 RDW 13.5 13.2 Plt Count 221 160 Seg Neutrophils % 88.0 H Blood Type B NEGATIVE Assessment and Plan(PN) - Time Spent with Patient Time with patient: Less than 15 minutes - Disposition Anticipated Discharge Disposition: Home, Self Care Anticipated Discharge Timeframe: within 24 hours
[2020-02-17] MEDS ORDERED: METHYLERGONOVINE MALEATE 0.2 MG TABLET ONE
[2020-02-17] MEDS: METHYLERGONOVINE MALEATE 0.2 MG TABLET PO SCH (00:08)
[2020-02-17] MEDS: IBUPROFEN 800 MG TABLET PO SCH (05:21)
[2020-02-17 08:06] VITALS: BP 112/50
[2020-02-17] MEDS: FERROUS SULFATE 325 MG TABLET PO SCH (09:24)
[2020-02-17] MEDS: FAMOTIDINE 20 MG TABLET PO SCH (09:24)
[2020-02-17] MEDS: PRENATAL VITAMIN W DHA CAPSULE PO SCH (09:24)
[2020-02-17] MEDS: DOCUSATE SODIUM 100 MG CAPSULE PO SCH (09:24)
[2020-02-17] MEDS: SENNOSIDES/DOCUSATE 8.6-50 MG 1 EACH TABLET PO SCH (09:24)
--- NOTE | 2020-02-17 13:30 | PDOC DISCHARGE SUMMARY ---
Impression - Admit/DC Date/PCP Admission Date/Primary Care Provider: 02/15/20 06:02 CRYS DEL CID MD Discharge Date: 02/17/20 - Discharge Diagnosis (1) Acute blood loss anemia Is this a current diagnosis for this admission?: Yes (2) Perineal laceration during delivery, delivered Is this a current diagnosis for this admission?: Yes (3) Delivery normal Is this a current diagnosis for this admission?: Yes (4) membrane rupture Is this a current diagnosis for this admission?: Yes (5) Active labor at term Is this a current diagnosis for this admission?: Yes - Assessment Summary: 25yo s/p ppd2-stable and ready for discharge, understands warning s/s and reasons to rtc/[facility] - Additional Information Resuscitation Status: Full Code Discharge Diet: As Tolerated, Regular Discharge Activity: Activity As Tolerated, Balance Activity w/Rest, No Lifting Over 10 Pounds, Pelvic Rest, No tub bath, Walk Frequently Referrals: CRYS DEL CID MD [Primary Care Provider] - Prescriptions: Ibuprofen [Motrin 800 mg Tablet] 800 mg PO Q8HP PRN #30 tablet PRN Reason: For Pain Scale 1-3 Docusate Sodium [Colace 100 mg Capsule] 100 mg PO BID #60 capsule Ferrous Sulfate [Feosol 325 mg Tablet] 325 mg PO BID #60 tablet Home Medications: Vits96/Iron Fum/Folic [ Tablet] 1 each PO DAILY 01/04/20 Docusate Sodium [Colace 100 mg Capsule] 100 mg PO BID #60 capsule 02/17/20 Ferrous Sulfate [Feosol 325 mg Tablet] 325 mg PO BID #60 tablet 02/17/20 Ibuprofen [Motrin 800 mg Tablet] 800 mg PO Q8HP PRN #30 tablet 02/17/20 Hospital Course 59. Maternal Morbidity (serious complications experinced by the mother associated with labor and delivery: None of the above Results Laboratory Results: WBC 10.2 10^3/uL (4.0-10.5) 02/16/20 07:08 RBC 3.08 10^6/uL (3.72-5.28) L 02/16/20 07:08 Hgb 8.9 g/dL (12.0-15.5) L D 02/16/20 07:08 Hct 25.6 % (36.0-47.0) L 02/16/20 07:08 MCV 83 fl (80-97) 02/16/20 07:08 MCH 29.1 pg (27.0-33.4) 02/16/20 07:08 MCHC 34.9 g/dL (32.0-36.0) 02/16/20 07:08 RDW 13.2 % (11.5-14.0) 02/16/20 07:08 Plt Count 160 10^3/uL (150-450) 02/16/20 07:08 Lymph % (Auto) 8.5 % (13-45) L 02/15/20 18:02 [place] % (Auto) 3.1 % (3-13) 02/15/20 18:02 Eos % (Auto) 0.2 % (0-6) 02/15/20 18:02 Baso % (Auto) 0.2 % (0-2) 02/15/20 18:02 Absolute Neuts (auto) 14.9 10^3/uL (1.7-8.2) H 02/15/20 18:02 Absolute Lymphs (auto) 1.4 10^3/uL (0.5-4.7) 02/15/20 18:02 Absolute Monos (auto) 0.5 10^3/uL (0.1-1.4) 02/15/20 18:02 Absolute Eos (auto) 0.0 10^3/uL (0.0-0.6) 02/15/20 18:02 Absolute Basos (auto) 0.0 10^3/uL (0.0-0.2) 02/15/20 18:02 Seg Neutrophils % 88.0 % (42-78) H 02/15/20 18:02 Urine Color YELLOW 02/15/20 05:20 Urine Appearance SLIGHTLY-CLOUDY 02/15/20 05:20 Urine pH 6.0 (5.0-9.0) 02/15/20 05:20 Ur Specific [place] 1.012 02/15/20 05:20 Urine Protein NEGATIVE mg/dL (NEGATIVE) 02/15/20 05:20 Urine Glucose (UA) NEGATIVE mg/dL (NEGATIVE) 02/15/20 05:20 Urine Ketones NEGATIVE mg/dL (NEGATIVE) 02/15/20 05:20 Urine Blood MODERATE (NEGATIVE) H 02/15/20 05:20 Urine Nitrite NEGATIVE (NEGATIVE) 02/15/20 05:20 Urine Bilirubin NEGATIVE (NEGATIVE) 02/15/20 05:20 Urine Urobilinogen NEGATIVE mg/dL (<2.0) 02/15/20 05:20 Ur Leukocyte Esterase SMALL (NEGATIVE) H 02/15/20 05:20 Urine Ascorbic Acid NEGATIVE (NEGATIVE) 02/15/20 05:20 Membranes Rupture POSITIVE (NEGATIVE) H 02/15/20 05:22 Urine Opiates Screen NEGATIVE 02/15/20 05:20 Urine Methadone Screen NEGATIVE 02/15/20 05:20 Ur Barbiturates Screen NEGATIVE 02/15/20 05:20 Ur Phencyclidine Scrn NEGATIVE 02/15/20 05:20 Ur Amphetamines Screen NEGATIVE 02/15/20 05:20 U Benzodiazepines Scrn NEGATIVE 02/15/20 05:20 Urine Cocaine Screen NEGATIVE 02/15/20 05:20 U Marijuana (THC) Screen NEGATIVE 02/15/20 05:20 RPR NONREACTIVE (NONREACTIVE) 02/15/20 07:41 Blood Type B NEGATIVE 02/16/20 07:08 Antibody Screen NEGATIVE 02/15/20 07:41 Screen NEGATIVE 02/16/20 07:08
== END 2020-02-17 14:18 | disposition home or self-care (01) | DRG 806 ==
LOC: LC 05:03 → LR 06:02 → 2S 20:35
PROVIDERS: ADMIT Obstetrics & Gynecology Gynecology; ATTEND Obstetrics & Gynecology
PROC: 10E0XZZ Delivery of Products of Conception, External Approach (ICD-10-PCS; principal; 2020-02-15)
PROC: 3E033VJ Introduction of Other Hormone into Peripheral Vein, Percutaneous Approach (ICD-10-PCS; 2020-02-15)
PROC: 3E0234Z Introduction of Serum, Toxoid and Vaccine into Muscle, Percutaneous Approach (ICD-10-PCS; 2020-02-17)
DX: O26.893 Other specified pregnancy related conditions, third trimester (principal); D62 Acute posthemorrhagic anemia; Z37.0 Single live birth; O69.81X0 Labor and delivery complicated by cord around neck, without compression, not applicable or unspecified; Z67.21 Type B blood, Rh negative; Z03.818 Encounter for observation for suspected exposure to other biological agents ruled out; O90.81 Anemia of the puerperium; O70.1 Second degree perineal laceration during delivery; Z91.040 Latex allergy status; Z3A.40 40 weeks gestation of pregnancy
CPT/HCPCS: 1967; 36415; 80307; 81005; 84112; 85025; 85027; 85461; 86592; 86850; 86900; 86901; 94760; J0295; J2210; J2300; J2550; J2590; J2790; J2795; J3010; J3490; J7050